=== PATIENT | male | born 1990 | race African-American/Black ===

== ENCOUNTER 2018-12-31 12:05 | Emergency (ER) | payer OTHER ==
[2018-12-31] MEDS ORDERED: Orphenadrine 100 MG Tab.ER PO ONE (12:47)
[2018-12-31] MEDS ORDERED: Ketorolac 60 MG/2 ML SDV IM ONE (12:47)
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
--- NOTE | 2018-12-31 14:14 | CR ---
Lumbar spine: AP and lateral views of the lumbar spine were obtained. Comparison: No previous study. Mild posterior disc space narrowing is noted at T12-L1, L1-L2 and L2-L3. Other disc spaces are maintained. Vertebral body heights are maintained. Pedicles as well as transverse and spinous processes are intact. Transitional segment is seen at the lumbosacral junction with pseudoarticulation of enlarged transverse processes of L5 to the sacrum. No subluxation or fracture is seen. Impression: 1. Transitional segment as noted above. Slight posterior disc space narrowing. 2. Nothing acute is appreciated on two-view lumbar spine study. Diagnostic code #2
--- NOTE | 2018-12-31 14:14 | CR ---
Thoracic spine: AP, lateral and swimmer's views of the thoracic spine were obtained. Comparison: No previous study. Minimal scoliosis is noted. Vertebral body heights and disc spaces are maintained. Pedicles are intact. No subluxation or fracture is seen. Impression: 1. Minimal scoliosis. Three-view thoracic spine study is otherwise unremarkable. Diagnostic code #2
== END 2018-12-31 15:05 | disposition home or self-care (01) ==
LOC: JD.ED 12:05
DX: M54.5 Low back pain (principal); V64.5XXA Driver of heavy transport vehicle injured in collision with heavy transport vehicle or bus in traffic accident, initial encounter; Y92.410 Unspecified street and highway as the place of occurrence of the external cause
CPT/HCPCS: 72070; 72100; 96372; 99283; A9270; J1885